=== PATIENT | female | born 1965 | race Caucasian/White ===

== ENCOUNTER 2018-08-22 09:16 | Emergency (ER) | payer SELFPAY ==
[~2018-08-22] VITALS: Ht 162.6 cm; Wt 94.8 kg
[2018-08-22 09:28] VITALS: BP 154/99; Ht 162.6 cm; Wt 94.8 kg
== END 2018-08-22 11:56 | disposition home or self-care (01) ==
LOC: ED 09:16
DX: J06.9 Acute upper respiratory infection, unspecified (principal); I10 Essential (primary) hypertension; E11.9 Type 2 diabetes mellitus without complications
CPT/HCPCS: Q0092

== ENCOUNTER 2020-03-11 11:06 | Inpatient (IN) | payer OTHER, SELFPAY ==
[~2020-03-11] VITALS: Ht 157.5 cm; Wt 100.9 kg
--- NOTE | 2020-03-11 11:48 | NUR ---
54 YEAR OLD FEMALE PRESENTS FOR RIGHT SIDED BACK PAIN, HEADACHE, FEVERS, BODY ACHES, CHILLS, DYSURIA AND CLOUDY URINE X 3 DAYS. PT SHE HAS HAD SIMILIAR SYMPTOMS APPROX. 10 YEARS AGO WHEN SHE HAD A KIDNEY INFECTION. DENIES COUGH, CHEST PAIN, SICK CONTACTS, TRAUMA, RECENT HEAVY LIFTING. STATES PAIN IS WORSE WHEN BENDING OVER. PT IS AWAKE, ALERT, RESP E/U. ON FULL CM AND PULSE OX.
[2020-03-11 13:27] LABS: ALKALINE PHOSPHATASE 99 U/L (46-116); ALT/SGPT 49 U/L (14-59); AST/SGOT 40 U/L (15-37); BILIRUBIN TOTAL 0.34 mg/dL (0.20-1.00); CALCIUM 8.2 mg/dL (8.5-10.1); CARBON DIOXIDE 23.4 mmol/L (21-32); CHLORIDE SERUM 97 mmol/L (98-107); CHOLESTEROL 174 mg/dL (<200); CREATININE SERUM 1.2 mg/dL (0.6-1.0); GFR1 50 mL/min; GLUCOSE SERUM 320 mg/dL (74-106); HDL CHOLESTEROL 37 mg/dL (40-60); POTASSIUM SERUM 3.9 mmol/L (3.5-5.1); SODIUM SERUM 132 mmol/L (136-145); TOTAL PROTEIN, SERUM 7.5 g/dL (6.4-8.2)
[2020-03-11 13:36] LABS: BASOPHIL % 0.3 % (0-2); PLATELET COUNT 213 x10^3mcL (130-400); RED CELL DISTRIBUTION WIDTH 14.1 % (11.5-14.5)
--- NOTE | 2020-03-11 13:54 | NUR ---
PT LAYING COMFORTABLY IN GURNEY. REPORTS "FEELING BETTER." AWAKE, ALERT, RESP E/U.
[2020-03-11 13:56] LABS: C REACTIVE PROTEIN 3.8 mg/dL (<=0.9)
[2020-03-11] MEDS ORDERED: SIMVASTATIN5 M2 PO (14:03)
[2020-03-11] MEDS ORDERED: NOVOLOG FLEX100 U/M1 SQ (14:04)
[2020-03-11] MEDS ORDERED: ASPIRIN CHILDRE81 MG (14:04)
[2020-03-11 14:23] LABS: UA SPECIFIC GRAVITY 1.025 (1.005-1.035); microscopic required? YES; urine erythrocyte NEGATIVE (NEGATIVE)
--- NOTE | 2020-03-11 15:00 | NUR ---
RECEIVED PT FROM ED VIA [facility], CAME IN DUE TO FEVER AND RIGHT FLANK PAIN X3 DAYS. AAOX4. STATED THAT SHE HAS MILD HEADACHE AND MILD DIZZINESS. ABLE TO FOLLOW COMMANDS. NO SOB NOTED, LUNG SOUNDS CTA. DENIES COUGH. DENIES CHEST PAIN/PRESSURE, SR ON THE MONITOR. DENIES ABDOMINAL PAIN/NAUSEA/VOMITING. ABDOMEN IS SOFT AND ROUND. VOIDS FREELY. DENIES BURNING SENSATION ON URINATION. C/O 8/10 RIGHT FLANK PAIN. ABLE TO MOVE ALL EXTREMITIES. IV SITE PATENT AND INTACT. SIDE RAILS UPX2. CALL LIGHT ON REACH. ENDORSED TO PRIMARY NURSE HARDEEP FOR CONTINUITY OF CARE
[2020-03-11 15:06] VITALS: BP 128/69
[2020-03-11 15:17] VITALS: Ht 157.5 cm; Wt 100.9 kg
[2020-03-11 18:12] LABS: MAGNESIUM 1.8 mg/dL (1.8-2.4); PHOSPHOROUS 3.7 mg/dL (2.5-4.9)
--- NOTE | 2020-03-11 18:12 | NUR ---
PT IN NO ACUTE DISTRESS. AAOX4. RESP EVEN AND UNLABORED ON RA. NO C/O PAIN AT THIS TIME. IV WITH ON REDNESS OR SWELLING. DROPLET/CONTACT ISOLATION. BED IN LOW POSITION, CALL LIGHT WITHIN REACH. WILL ENDORSE TO ONCOMING SHIFT.
[2020-03-11 18:19] LABS: CHOLESTEROL/HDL RATIO 5.2
[2020-03-11 18:38] LABS: FREE T4 1.01 ng/dL (0.76-1.46); FREE THYROXINE INDEX 2.5 ug/dL (1.4-4.5); T4(THYROXINE) 7.1 ug/dL (4.7-13.3)
--- NOTE | 2020-03-11 19:05 | NUR ---
CARE ASSUMED FROM OUTGOING RN, PT CURRENTLY ON RA. ON TELE#4 READING SR 88. NO C/O SOB OR PAIN AT THIS TIME. CONTACT AND DROPLET ISOLATIN IN PLACE. WILL CONTINUE TO MONITOR.
[2020-03-11 20:05] VITALS: BP 144/64
--- NOTE | 2020-03-12 01:56 | NUR ---
ON TELE READING SR 92. NO ACUTE DISTRESS NOTED. WILL CONTINUE TO MONITOR.
[2020-03-12 04:38] VITALS: BP 145/70
--- NOTE | 2020-03-12 06:39 | NUR ---
PT RESTED COMFORTABLY IN INTERVALS THROUGHOUT THE SHIFT. ALL NEEDS TENDED TO AND MET. ALL SCHEDULED MEDICATIONS GIVEN. EVEN AND UNLABORED RESPIRATIONS ON RA SATTING 96%, ON TELE READING SR. C/O HEADACHE MEDICATED PER EMAR, RESOLVING. CONTACT AND DROPLET ISOLATION IN PLACE. WILL ENDORSE TO ONCOMING SHIFT
[2020-03-12 07:32] LABS: BASOPHIL % 0.3 % (0-2); PLATELET COUNT 202 x10^3mcL (130-400); RED CELL DISTRIBUTION WIDTH 13.9 % (11.5-14.5)
[2020-03-12 07:59] LABS: CARBON DIOXIDE 24.7 mmol/L (21-32); CHLORIDE SERUM 97 mmol/L (98-107); CREATININE SERUM 0.9 mg/dL (0.6-1.0); GFR1 > 60 mL/min; GLUCOSE SERUM 277 mg/dL (74-106); MAGNESIUM 1.5 mg/dL (1.8-2.4); PHOSPHOROUS 2.9 mg/dL (2.5-4.9); POTASSIUM SERUM 3.8 mmol/L (3.5-5.1); SODIUM SERUM 131 mmol/L (136-145)
[2020-03-12 08:26] VITALS: BP 107/63
--- NOTE | 2020-03-12 08:30 | NUR ---
RECEIVED PT FROM NIGHT NURSE. AAOX4. SHE C/O HEADACHE 10/13. RECENTLY MEDICATED WITH TYLENOL. WILL ADMINISTER MEDS WHEN IT IS SAFE TO GIVE ANOTHER DOSE. ABX RUNNING, IV SITE PATENT AND WNL. ALL OTHER IMMEDIATED NEEDS MET AND OTHERWISE COMFORTABLE. SAO2 95% ON RA, DENIES SOB, AND NO SIGNS OF RESPIRATORY DISTRESS. WILL CONTINUE TO MONITOR.
[2020-03-12 12:04] VITALS: BP 131/78
[2020-03-12 16:38] VITALS: BP 134/78
--- NOTE | 2020-03-12 19:00 | NUR ---
PT HAS REMAINED STABLE WITH NO EPISODES OF DISTRESS. 96% SAO2 ON ROOM AIR. DENIES SOB AND BREATHING IS UNLABORED. AMBULATORY AND TOLERATES DIET WELL. AAOX4. MEDICATED WITH TYLENOL JUST BEFORE START OF SHIFT, OTHERWISE HAS REMAINED FREE FROM PAIN. PT COMFORTABLE WITH SAFETY PRECAUTIONS IN PLACE. WILL ENDORSE TO NIGHT NURSE.
[2020-03-12 20:14] VITALS: BP 142/85
--- NOTE | 2020-03-12 20:24 | NUR ---
REPORT FORM RAY CUMMINGS. PT BREATHING EVEN AND UNLABORED ON RA. NO S/S OF DISTRESS OR DISCOMFORT. AXOX4. CTA LUNG SOUNDS. 95% SPO2. GEN WEAKNESS. LAC 20G. SL. TELE 4 SR AT THIS TIME. ACTIVE BOWELS, ROUND SOFT NON TENDER ABD. SKIN WARM AND DRY. INTACT. STRONF RADIAL AND PEDAL PULSES. NO EDEMA. VOIDS FREELY, AMBULATES TO THE RESTROOM. PT DENIES PAIN AT THIS TIME.BED IN LOW POSITION, SIDE RAILS UPX2, CALL LIGHT WITHIN REACH. WILL CONTINUE TO MONITOR PATIENT AND OFFER SUPPORT.
--- NOTE | 2020-03-13 00:04 | NUR ---
PT RESTING EYES CLOSED NO S/S OF DISTRESS OR DISCOMFORT. PATIENT BREATHING EVEN AND UNLABORED ON RA, 98% SPO2. PATIENT RELE4 SR AT THIS TIME. AXOX4 AND AMBULATES. WILL CONTINUE TO MONITOR PATIENT AND OFFER SUPPORT.
[2020-03-13 05:32] VITALS: BP 145/62
--- NOTE | 2020-03-13 05:38 | NUR ---
PT RESTING EYES CLOSED. NO S/S OF DISTRESS OR DISCOMFORT. BS 239 MEDICATIONS GIVEN ORDERED. 6U HUMULIN R. PT DENIES PAIN AT THIS TIME. PT BREATHING EVEN AND UNLABORED ON RA 99% SPO2. TELE4 SR. IV INTACT. NO INDICATION OF INFILTRATION. BED IN LOW POSITION, SIDE RAIL UP X2, CALL LIGHT WITHIN REACH.
[2020-03-13 07:46] LABS: BASOPHIL % 0.5 % (0-2); PLATELET COUNT 221 x10^3mcL (130-400); RED CELL DISTRIBUTION WIDTH 13.5 % (11.5-14.5)
[2020-03-13 08:07] LABS: CALCIUM 8.5 mg/dL (8.5-10.1); CARBON DIOXIDE 26.8 mmol/L (21-32); CHLORIDE SERUM 95 mmol/L (98-107); CREATININE SERUM 0.9 mg/dL (0.6-1.0); GFR1 > 60 mL/min; GLUCOSE SERUM 235 mg/dL (74-106); MAGNESIUM 2.2 mg/dL (1.8-2.4); PHOSPHOROUS 3.5 mg/dL (2.5-4.9); POTASSIUM SERUM 3.9 mmol/L (3.5-5.1); SODIUM SERUM 132 mmol/L (136-145)
[2020-03-13 08:19] VITALS: BP 139/74
--- NOTE | 2020-03-13 09:13 | NUR ---
A&OX4, FOLLOWS COMMANDS AND COOPERATES WELL. TELE #4, NSR, DENIES CHEST PAIN. PERIPHERAL PULSES PALPABLE W/ NO SIGNS OF EDEMA/ LUNG SOUNDS CTA BILATERALLY, ON RA, O2 SAT 99%, DENIES SOB. NORMOACTIVE BSX4, ABD SOFT AND ROUND, DENIES ABD PAIN. VOIDS USING RSETROOM. AMBULATORY. SKIN IS CDI. DENIES PAIN OR DISCOMFORT AT THIS TIME. IV SITE IS CDI. WILL CONTINUE TO MONITOR PATIENT.
--- NOTE | 2020-03-13 11:40 | NUR ---
PATIENT IS CURRENTLY RESTING IN BED AND WATCHING TELEVISION WITHOUT ANY PAIN OR DISCOMFORT. DENIES ANY SOB AT THIS TIME. WILL CONTINUE TO MONITOR PATIENT.
[2020-03-13 11:57] VITALS: BP 140/80
[2020-03-13] MEDS ORDERED: LEVAQUIN750 MG PO (12:16)
[2020-03-13] MEDS ORDERED: VENTOLIN H0.09 MG/A1 INH (12:17)
[2020-03-13] MEDS ORDERED: LANTI SQ (12:18)
[2020-03-13] MEDS ORDERED: MUCINEX600 MG PO (12:20)
[2020-03-13 13:09] VITALS: BP 140/80
--- NOTE | 2020-03-13 14:27 | NUR ---
PATIENT RECEIVED DISCAHRGE INSTRUCTIONS. ALL QUESTIONS AND CONCERNS HAVE BEEN ADDRESSED. IV SITE HAS BEEN DC AND CATHETER WAS INTACT. TELE HAS BEEN RETURNED TO [facility]. PATIENT IS ISNTRUCTED TO FOLLOW DISCAHRGE INSTRUCTIONS, AND THAT WHEN READY TO LEAVE, WILL CALL [facility] TO NOTIFY THAT SHE IS READY TO LEAVE. WILL CONTINUE TO MONITOR PATIENT UNTIL THEN.
[2020-03-13 14:38] LABS: T3 TOTAL 0.72 ng/mL
== END 2020-03-13 14:33 | disposition home or self-care (01) | DRG 871 ==
LOC: ED 11:06 → DU 13:57 → EDBEDREQ 14:01 → DU 15:01
PROVIDERS: Emergency Medicine; ADMIT Internal Medicine; ATTEND Internal Medicine
DX: A41.9 Sepsis, unspecified organism (principal); J18.9 Pneumonia, unspecified organism; U07.1 COVID-19; E46 Unspecified protein-calorie malnutrition; E87.1 Hypo-osmolality and hyponatremia; Z68.41 Body mass index [BMI] 40.0-44.9, adult; I10 Essential (primary) hypertension; E11.9 Type 2 diabetes mellitus without complications; E78.5 Hyperlipidemia, unspecified; E66.9 Obesity, unspecified; J02.9 Acute pharyngitis, unspecified; Z79.899 Other long term (current) drug therapy; Z79.82 Long term (current) use of aspirin; Z98.891 History of uterine scar from previous surgery; Z79.4 Long term (current) use of insulin; Z83.3 Family history of diabetes mellitus
CPT/HCPCS: 36600; 82962; 83880; 84439; 85378; 87804; G0378; J0456; J0696; J1100; J1644; J1815; J3475; J3535; J7030; J7050; J7060; Q0092; U0003-CS